=== PATIENT | female | born 1970 | race Caucasian/White ===

== ENCOUNTER 2020-10-20 10:22 | Outpatient (CLI) | payer OTHER, SELFPAY ==
--- NOTE | ~2020-10-20 | MM_ITS ---
EXAMINATION: MM diagnostic celestino BI w shirley HISTORY: Follow-up left breast calcifications TECHNIQUE: Additional 3-D tomosynthesis images of the breasts were performed and synthetic 2-D images were generated. CAD analysis was submitted and interpreted. COMPARISON: Comparison to multiple prior studies sequentially, with oldest reviewed study dated 11/2011. BREAST PARENCHYMAL COMPOSITION: The breasts are heterogenously dense, which may obscure small masses. FINDINGS: Stable benign-appearing calcifications middle third of the left breast on CC view. No new m asses, calcifications or architectural distortion to suggest malignancy. IMPRESSION: 1. No mammographic evidence for malignancy in either breast. 2. Routine yearly screening mammogram and regular clinical breast examination are recommended. BI-RADS Category 2: Benign finding(s). Reviewed, dictated and finalized at location A. [employer] IMPRESSION: 1. No mammographic evidence for malignancy in either breast. 2. Routine yearly screening mammogram and regular clinical breast examination a re recommended. BI-RADS Category 2: Benign finding(s).
== END 2020-10-20 10:23 | disposition home or self-care (01) ==
LOC: ANHIMG 10:26
PROVIDERS: PCP Obstetrics & Gynecology; Visit Provider Obstetrics & Gynecology
DX: R92.8 Other abnormal and inconclusive findings on diagnostic imaging of breast (principal)
CPT/HCPCS: 77062; 77066; G0279